=== PATIENT | male | born 1935 | race Caucasian/White ===

== ENCOUNTER 2020-10-08 10:39 | Emergency (ER) | payer MEDICARE, OTHER ==
[~2020-10-08] VITALS: Ht 165.1 cm; Wt 76.0 kg
--- NOTE | 2020-10-08 12:12 | NUR ---
Noted no MD/PA has seen pt. Requested pt be seen at this time with staff heading into room now for exam.
--- NOTE | 2020-10-08 12:14 | NUR ---
pt has concerns about right jaw pain and neck pain. Pt believes he may have had a "mini-stroke" no explaination was given at that time, but neuro deficits noted upon neuro assessment.
--- NOTE | 2020-10-08 12:29 | NUR ---
automotive technician at bedside for exam. drain technician requested to assist RN by cleaning wounds. Awaiting CT to be completed.
[2020-10-08] MEDS ORDERED: PLEASE ENTER ALLERGIES MC SCH (12:30)
--- NOTE | 2020-10-08 12:40 | NUR ---
senior technical specialist and EMS student at bedside for wound cleaning. Dsg removed from L hand with large, irregular, deep laceration noted to palm, not back, of hand and deep small wound to tip of L index finger present noted as well.
[2020-10-08] MEDS ORDERED: ACETAMINOPHEN 500 MG TABLET ONE (12:42)
[2020-10-08] MEDS ORDERED: DIPH,PERTUSS(ACELL),TET VAC/PF 0.5 ML IM-VACC ONE (13:00)
[2020-10-08] MEDS ORDERED: ACETAMINOPHEN 500 MG TABLET PO ONE (13:30)
--- NOTE | 2020-10-08 13:38 | NUR ---
Meal break report given and care transferred now.
[2020-10-08] MEDS ORDERED: LIDOCAINE-MPF 1%, 5ML ONE ×4 (13:43→17:21)
--- NOTE | 2020-10-08 13:51 | NUR ---
Task RN: lidocaine placed bedside. criminal investigative agent currently bedside cleaning pt wounds. HERON.
[2020-10-08] MEDS ORDERED: LIDOCAINE 1%, 10ML INFIL ONE (14:00)
--- NOTE | 2020-10-08 14:10 | NUR ---
Task RN: pt to xray
--- NOTE | 2020-10-08 14:13 | NUR ---
Report received from meal break RN and care reassumed. Reported pt in CT now and Lidocaine at bedside for PA.
[2020-10-08] MEDS ORDERED: BACITRACIN ZINC OINT 500U/GM, 0.9 GM ONE (15:33)
[2020-10-08] MEDS ORDERED: L.E.T SOLUTION TP ONE (15:50)
--- NOTE | 2020-10-08 15:53 | NUR ---
game technician at bedside for more wound irrigation to L hand. LET solution applied and covered with 2x2 gauze to abrasions on face and R ear as requested.
--- NOTE | 2020-10-08 16:10 | NUR ---
Noted pt waiting to be seen by Dr. Gonzales for wound closure.
--- NOTE | 2020-10-08 17:03 | NUR ---
Janet at bedside with pt at this time.
--- NOTE | 2020-10-08 18:22 | NUR ---
Pt with all wounds dressed by PA. Pt assisted with getting dressed and ready to go home. Awaiting D/C paperwork. Pt A/O x4, able to stand with steady gait noted, and instructions on how to take the sling on/off given with return demonstration provided by pt.
[2020-10-08 18:33] VITALS: BP 132/81
== END 2020-10-08 18:43 | disposition home or self-care (01) ==
LOC: ED 15:13
DX: S02.40CA Maxillary fracture, right side, initial encounter for closed fracture (principal); S42.031A Displaced fracture of lateral end of right clavicle, initial encounter for closed fracture; S02.40EA Zygomatic fracture, right side, initial encounter for closed fracture; S01.311A Laceration without foreign body of right ear, initial encounter; S61.211A Laceration without foreign body of left index finger without damage to nail, initial encounter; S16.1XXA Strain of muscle, fascia and tendon at neck level, initial encounter; R00.0 Tachycardia, unspecified; W18.30XA Fall on same level, unspecified, initial encounter; Y93.89 Activity, other specified; Y92.410 Unspecified street and highway as the place of occurrence of the external cause; Y99.8 Other external cause status
CPT/HCPCS: 12001; 12011; 12042; 70450; 70486; 72125; 90471; 90715; 99285